=== PATIENT | male | born 1995 | race Two or more races ===

== ENCOUNTER 2020-09-12 15:03 | Inpatient (IN) | payer MEDICAID ==
[~2020-09-12] VITALS: Ht 180.3 cm; Wt 109.5 kg
[2020-09-12] MEDS ORDERED: SERT-162 PO (16:50)
[2020-09-12] MEDS ORDERED: BUPR-93 PO (16:50)
[2020-09-12] MEDS ORDERED: HALOPERIDOL 5 MG TABLET PO PRN (19:45)
[2020-09-12] MEDS ORDERED: INFLUENZA VIRUS VACCINE QVS 2020-21 (6MO+)/PF 60 MCG/0.5 ML SYRINGE IM ONE (19:45)
[2020-09-12] MEDS ORDERED: PNEUMOCOCCAL VACCINE POLYVALENT 0.5 ML VIAL [PPSV23] IM ONE (19:45)
[2020-09-12 20:00] VITALS: BP 131/71
[2020-09-12] MEDS: LORazepam 2 MG TABLET PO PRN (21:48)
[2020-09-12] MEDS ORDERED: ACETAMINOPHEN 325 MG TABLET PO PRN (22:15)
[2020-09-13] MEDS ORDERED: CloNIDine HCL 0.1 MG TABLET PO PRN (06:15)
[2020-09-13] MEDS ORDERED: MAG HYDROX/AL HYDROX/SIMETH ES 30 ML SUSPENSION UDCUP PO PRN (06:15)
[2020-09-13] MEDS ORDERED: ONDANSETRON HCL 4 MG TABLET PO PRN (06:15)
[2020-09-13] MEDS ORDERED: MAGNESIUM HYDROXIDE SUSPENSION 30 ML UDCUP PO PRN (06:15)
[2020-09-13] MEDS ORDERED: PETROLATUM,WHITE 28 GM JELLY TP PRN (06:15)
[2020-09-13] MEDS ORDERED: BACITRACIN 28 GM OINTMENT TP PRN (06:15)
[2020-09-13] MEDS ORDERED: DOCUSATE SODIUM 100 MG CAPSULE PO PRN (06:15)
[2020-09-13] MEDS ORDERED: ACETAMINOPHEN 325 MG TABLET PO PRN (06:15)
[2020-09-13] MEDS ORDERED: IBUPROFEN 600 MG TABLET PO PRN (06:15)
[2020-09-13] MEDS ORDERED: ALBUTEROL SULFATE HFA 90 MCG/PUFF 8 GM INHALER IH PRN (06:15)
[2020-09-13] MEDS ORDERED: OMEPRAZOLE 20 MG CAPSULE PO PRN (06:15)
[2020-09-13] MEDS ORDERED: LOPERAMIDE HCL 2 MG CAPSULE PO PRN (06:15)
[2020-09-13 06:39] VITALS: BP 120/69
[2020-09-13 08:33] LABS: BASOPHILS % (AUTO) 2.9 % (0.0-2.0); EOSINOPHILS % (AUTO) 2.8 % (1.0-6.0); HEMATOCRIT 44.8 % (41-53); HEMOGLOBIN 14.2 g/dL (13.5-17.5); LYMPHOCYTES # (AUTO) 1.7 K/uL (1.0-4.8); LYMPHOCYTES % (AUTO) 28.4 % (22.0-44.0); MEAN CORPUSCULAR HGB CONC 31.7 G/dL (31.0-37.0); MEAN CORPUSCULAR VOLUME 88 fL (80-100); MONOCYTES # (AUTO) 0.4 K/uL (0.1-1.0); MONOCYTES % (AUTO) 6.9 % (2.0-9.0); NEUTROPHILS # (AUTO) 3.6 K/uL (1.8-7.7); PLATELET COUNT (AUTO) 293 K/uL (150-450); RED BLOOD CELL COUNT(AUTO) 5.08 MIL/uL (4.50-5.90); RED CELL DISTRIBUTION WIDTH 13.2 % (11.5-14.5)
[2020-09-13 08:48] LABS: HEMOGLOBIN A1C 4.9 % (3.8-5.6)
[2020-09-13 08:55] LABS: ALANINE AMINOTRANSFERASE 35 U/L (12-78); ALBUMIN 3.9 g/dL (3.4-5.0); ALKALINE PHOSPHATASE 90 U/L (46-116); ANION GAP 7 mmol/L (8-16); ASPARTATE AMINOTRANSFERASE 27 U/L (15-37); BILIRUBIN,TOTAL 0.3 mg/dL (0.1-1.0); CARBON DIOXIDE 32 mmol/L (22-29); CHLORIDE 102 mmol/L (98-107); CHOL/HDL RATIO 5.1 (4.2-7.3); CHOLESTEROL 169 mg/dL (131-200); CREATININE 0.87 mg/dL (0.60-1.30); FREE T4 (FREE THYROXINE) 0.97 ng/dL (0.76-1.46); GLOMERULAR FILTR. RATE CALC > 60 mL/min (>60); GLUCOSE,RANDOM 90 mg/dL (70-110); HDL CHOLESTEROL 33 mg/dL (40-60); LDL CHOL (CALC.) 90 mg/dL (0-130); SODIUM SERUM 141 mmol/L (136-145); THYROID STIMULATING HORMONE 0.83 uIU/mL (0.36-3.74); TOTAL PROTEIN, SERUM 7.4 g/dL (6.4-8.2); TRIGLYCERIDES 229 mg/dL (15-150); UREA NITROGEN, BLOOD 11 mg/dL (7-18)
[2020-09-13 10:09] VITALS: BP 116/83
[2020-09-13] MEDS: SERTRALINE HCL 100 MG TABLET PO SCH (12:26)
[2020-09-13 16:35] VITALS: BP 115/64
[2020-09-13] MEDS: LORazepam 2 MG TABLET PO PRN (17:10)
[2020-09-13] MEDS: ZOLPIDEM TARTRATE 10 MG TABLET PO PRN (20:41)
[2020-09-14 06:16] VITALS: BP 134/76
[2020-09-14] MEDS: LORazepam 2 MG TABLET PO PRN (08:02)
[2020-09-14] MEDS: SERTRALINE HCL 100 MG TABLET PO SCH (08:02)
[2020-09-14 08:56] VITALS: BP 129/83
[2020-09-14 17:58] VITALS: BP 133/79
[2020-09-15] MEDS: ZOLPIDEM TARTRATE 10 MG TABLET PO PRN (00:05)
[2020-09-15 00:39] VITALS: BP 125/75
[2020-09-15] MEDS: LORazepam 2 MG TABLET PO PRN (07:22)
[2020-09-15 08:36] VITALS: BP 123/79
[2020-09-15] MEDS: SERTRALINE HCL 100 MG TABLET PO SCH (08:38)
== END 2020-09-15 15:00 | disposition home or self-care (01) | DRG 754 ==
LOC: B2S 19:42
PROVIDERS: ADMIT Psychiatry & Neurology Psychiatry; ATTEND Psychiatry & Neurology Psychiatry
PROC: 3E02340 Introduction of Influenza Vaccine into Muscle, Percutaneous Approach (ICD-10-PCS; principal; 2020-09-12)
PROC: 3E0234Z Introduction of Serum, Toxoid and Vaccine into Muscle, Percutaneous Approach (ICD-10-PCS; 2020-09-12)
DX: F32.9 Major depressive disorder, single episode, unspecified (principal); E66.9 Obesity, unspecified; E78.5 Hyperlipidemia, unspecified; F22 Delusional disorders; F41.9 Anxiety disorder, unspecified; G47.00 Insomnia, unspecified; Z68.33 Body mass index [BMI] 33.0-33.9, adult; Z23 Encounter for immunization
CPT/HCPCS: 83036; 84439; 84443; 87081; 90686; 90732

== ENCOUNTER 2021-04-16 22:48 | Inpatient (IN) | payer MEDICAID ==
[~2021-04-16] VITALS: Ht 180.3 cm; Wt 115.3 kg
[~2021-04-16 22:48] MED LIST: SERT-162 PO
[2021-04-16] MEDS ORDERED: HALOPERIDOL 5 MG TABLET PO PRN (23:30)
[2021-04-16 23:47] LABS: GLUCOMETER DEV NAME(LOC) POC.BV
[2021-04-17] MEDS ORDERED: -PHARMACY VACCINE NOTE- MISC ONE (00:45)
[2021-04-17] MEDS ORDERED: INFLUENZA VIRUS VACCINE QVS 2021-22 (6MO+)/PF 60 MCG/0.5 ML SYRINGE IM. ONE (00:45)
[2021-04-17 01:12] VITALS: BP 132/79
[2021-04-17] MEDS: ZOLPIDEM TARTRATE 10 MG TABLET PO PRN (01:17)
[2021-04-17] MEDS: LORazepam 2 MG TABLET PO PRN (02:36)
[2021-04-17 07:45] LABS: BASOPHILS % (AUTO) 0.4 % (0.0-2.0); EOSINOPHILS % (AUTO) 1.2 % (1.0-6.0); HEMATOCRIT 40.7 % (41-53); HEMOGLOBIN 13.7 g/dL (13.5-17.5); LYMPHOCYTES # (AUTO) 2.1 K/uL (1.0-4.8); MEAN CORPUSCULAR HEMOGLOBIN 27.3 pg (26.0-34.0); MEAN CORPUSCULAR HGB CONC 33.6 G/dL (31.0-37.0); MEAN CORPUSCULAR VOLUME 81 fL (80-100); MONOCYTES # (AUTO) 0.5 K/uL (0.1-1.0); MONOCYTES % (AUTO) 7.8 % (2.0-9.0); NEUTROPHILS # (AUTO) 4.2 K/uL (1.8-7.7); NEUTROPHILS % (AUTO) 60.6 % (40.0-70.0); PLATELET COUNT (AUTO) 306 K/uL (150-450); RED BLOOD CELL COUNT(AUTO) 5.02 MIL/uL (4.50-5.90); RED CELL DISTRIBUTION WIDTH 13.5 % (11.5-14.5)
[2021-04-17 08:10] LABS: HEMOGLOBIN A1C 5.6 % (3.8-5.6)
[2021-04-17 08:24] LABS: ALANINE AMINOTRANSFERASE 95 U/L (12-78); ALKALINE PHOSPHATASE 96 U/L (46-116); ANION GAP 10 mmol/L (8-16); ASPARTATE AMINOTRANSFERASE 50 U/L (15-37); BILIRUBIN,TOTAL 0.5 mg/dL (0.1-1.0); CALCIUM, TOTAL 8.8 mg/dL (8.8-10.5); CARBON DIOXIDE 28 mmol/L (22-29); CHLORIDE 102 mmol/L (98-107); CHOL/HDL RATIO 5.1 (4.2-7.3); CHOLESTEROL 184 mg/dL (131-200); CREATININE 0.89 mg/dL (0.60-1.30); FREE T4 (FREE THYROXINE) 1.06 ng/dL (0.76-1.46); GLOMERULAR FILTR. RATE CALC > 60 mL/min (>60); GLUCOSE,RANDOM 89 mg/dL (70-110); HDL CHOLESTEROL 36 mg/dL (40-60); LDL CHOL (CALC.) 127 mg/dL (0-130); POTASSIUM 3.8 mmol/L (3.5-5.1); SODIUM SERUM 140 mmol/L (136-145); THYROID STIMULATING HORMONE 1.86 uIU/mL (0.36-3.74); TOTAL PROTEIN, SERUM 7.4 g/dL (6.4-8.2); TRIGLYCERIDES 105 mg/dL (15-150); UREA NITROGEN, BLOOD 13 mg/dL (7-18)
[2021-04-17 09:26] VITALS: BP 130/90
[2021-04-17] MEDS ORDERED: CloNIDine HCL 0.1 MG TABLET PO PRN (10:00)
[2021-04-17] MEDS ORDERED: GuaiFENesin/D-METHORPHAN [SUGAR-FREE] 200-20MG/10 ML SYRUP UDCUP PO PRN (10:00)
[2021-04-17] MEDS ORDERED: MAGNESIUM HYDROXIDE SUSPENSION 30 ML UDCUP PO PRN (10:00)
[2021-04-17] MEDS ORDERED: MAG HYDROX/AL HYDROX/SIMETH ES 30 ML SUSPENSION UDCUP PO PRN (10:00)
[2021-04-17] MEDS ORDERED: IBUPROFEN 400 MG TABLET PO PRN (10:00)
[2021-04-17] MEDS ORDERED: PETROLATUM,WHITE 28 GM JELLY TP PRN (10:00)
[2021-04-17] MEDS ORDERED: NICOTINE 14 MG/24 HOUR PATCH TD PRN (10:00)
[2021-04-17] MEDS ORDERED: LOPERAMIDE HCL 2 MG CAPSULE PO PRN (10:00)
[2021-04-17] MEDS ORDERED: ALBUTEROL SULFATE HFA 90 MCG/PUFF 8 GM INHALER IH PRN (10:00)
[2021-04-17] MEDS ORDERED: ONDANSETRON HCL 4 MG TABLET PO PRN (10:00)
[2021-04-17] MEDS ORDERED: DOCUSATE SODIUM 100 MG CAPSULE PO PRN (10:00)
[2021-04-17] MEDS ORDERED: ACETAMINOPHEN 325 MG TABLET PO PRN (10:00)
[2021-04-17] MEDS: BusPIRone HCL 15 MG TABLET PO SCH (12:38)
[2021-04-17] MEDS: SERTRALINE HCL 100 MG TABLET PO SCH (12:39)
[2021-04-17 16:31] VITALS: BP 127/82
[2021-04-17] MEDS: LITHIUM CARBONATE 600 MG CAPSULE PO SCH (21:42)
[2021-04-18] MEDS: ZOLPIDEM TARTRATE 10 MG TABLET PO PRN ×2 (00:30→22:01)
[2021-04-18] MEDS: LORazepam 2 MG TABLET PO PRN ×2 (01:45→13:09)
[2021-04-18 06:09] VITALS: BP 130/76
[2021-04-18] MEDS: SERTRALINE HCL 100 MG TABLET PO SCH (08:07)
[2021-04-18 08:58] VITALS: BP 128/85
[2021-04-18] MEDS: BusPIRone HCL 15 MG TABLET PO SCH (09:16)
[2021-04-18] MEDS: NICOTINE POLACRILEX 2 MG LOZENGE PO PRN ×2 (13:28→20:45)
[2021-04-18 16:27] VITALS: BP 138/88
[2021-04-18] MEDS: LITHIUM CARBONATE 600 MG CAPSULE PO SCH (22:01)
[2021-04-19 03:56] VITALS: BP 132/81
[2021-04-19] MEDS: BusPIRone HCL 15 MG TABLET PO SCH (08:11)
[2021-04-19] MEDS: SERTRALINE HCL 100 MG TABLET PO SCH (08:12)
[2021-04-19] MEDS: NICOTINE POLACRILEX 2 MG LOZENGE PO PRN ×3 (08:12→21:53)
[2021-04-19 09:11] VITALS: BP 123/83
[2021-04-19 16:34] VITALS: BP 130/89
[2021-04-19] MEDS: LITHIUM CARBONATE 600 MG CAPSULE PO SCH (21:54)
[2021-04-19] MEDS: ZOLPIDEM TARTRATE 10 MG TABLET PO PRN (22:04)
[2021-04-20 03:26] VITALS: BP 128/86
[2021-04-20] MEDS: NICOTINE POLACRILEX 2 MG LOZENGE PO PRN ×2 (08:10→18:19)
[2021-04-20 08:37] VITALS: BP 120/79
[2021-04-20] MEDS: SERTRALINE HCL 100 MG TABLET PO SCH (08:38)
[2021-04-20] MEDS: BusPIRone HCL 15 MG TABLET PO SCH (08:38)
[2021-04-20] MEDS: LITHIUM CARBONATE 300 MG CAPSULE PO SCH (13:00)
[2021-04-20 16:23] VITALS: BP 129/80
[2021-04-20] MEDS: LITHIUM CARBONATE 600 MG CAPSULE PO SCH (20:35)
[2021-04-20] MEDS: LORazepam 2 MG TABLET PO PRN (21:03)
[2021-04-21] MEDS: ZOLPIDEM TARTRATE 10 MG TABLET PO PRN ×2 (00:29→22:04)
[2021-04-21] MEDS: NICOTINE POLACRILEX 2 MG LOZENGE PO PRN ×2 (00:29→18:05)
[2021-04-21 03:16] VITALS: BP 130/88
[2021-04-21 07:32] LABS: COVID AG,FIA SOURCE NASOPHARYNGEAL
[2021-04-21 08:22] VITALS: BP 114/73
[2021-04-21] MEDS: BusPIRone HCL 15 MG TABLET PO SCH (08:59)
[2021-04-21] MEDS: LITHIUM CARBONATE 300 MG CAPSULE PO SCH (09:00)
[2021-04-21] MEDS: SERTRALINE HCL 100 MG TABLET PO SCH (09:00)
[2021-04-21 16:10] VITALS: BP 124/74
[2021-04-21] MEDS: LITHIUM CARBONATE 600 MG CAPSULE PO SCH (22:01)
[2021-04-22 00:51] VITALS: BP 126/76
[2021-04-22] MEDS: NICOTINE POLACRILEX 2 MG LOZENGE PO PRN ×4 (03:32→23:05)
[2021-04-22] MEDS: LITHIUM CARBONATE 300 MG CAPSULE PO SCH ×2 (08:03→22:08)
[2021-04-22] MEDS: BusPIRone HCL 15 MG TABLET PO SCH (08:03)
[2021-04-22] MEDS: SERTRALINE HCL 100 MG TABLET PO SCH (08:03)
[2021-04-22 08:34] VITALS: BP 130/83
[2021-04-22 16:08] VITALS: BP 127/84
[2021-04-22] MEDS: ZOLPIDEM TARTRATE 10 MG TABLET PO PRN (22:09)
[2021-04-22] MEDS: LITHIUM CARBONATE 600 MG CAPSULE PO SCH (22:13)
[2021-04-23 01:45] VITALS: BP 140/82
[2021-04-23 08:14] VITALS: BP 137/80
[2021-04-23] MEDS: LITHIUM CARBONATE 300 MG CAPSULE PO SCH (09:37)
[2021-04-23] MEDS: BusPIRone HCL 15 MG TABLET PO SCH (09:37)
[2021-04-23] MEDS: SERTRALINE HCL 100 MG TABLET PO SCH (09:37)
[2021-04-23] MEDS: NICOTINE POLACRILEX 2 MG LOZENGE PO PRN ×2 (12:28→18:40)
[2021-04-23 16:07] VITALS: BP 123/76
[2021-04-23] MEDS: ZOLPIDEM TARTRATE 10 MG TABLET PO PRN (21:34)
[2021-04-23] MEDS: LITHIUM CARBONATE 600 MG CAPSULE PO SCH (21:34)
[2021-04-24 00:44] VITALS: BP 124/74
[2021-04-24 08:54] VITALS: BP 111/66
[2021-04-24] MEDS: NICOTINE POLACRILEX 2 MG LOZENGE PO PRN ×4 (09:10→23:52)
[2021-04-24] MEDS: SERTRALINE HCL 100 MG TABLET PO SCH (09:19)
[2021-04-24] MEDS: BusPIRone HCL 15 MG TABLET PO SCH (09:19)
[2021-04-24] MEDS: LITHIUM CARBONATE 300 MG CAPSULE PO SCH (09:19)
[2021-04-24 16:17] VITALS: BP 131/82
[2021-04-24] MEDS: LITHIUM CARBONATE 600 MG CAPSULE PO SCH ×2 (21:19→22:36)
[2021-04-24] MEDS: ZOLPIDEM TARTRATE 10 MG TABLET PO PRN (22:36)
[2021-04-25 00:51] VITALS: BP 134/83
[2021-04-25 08:25] VITALS: BP 133/83
[2021-04-25] MEDS: BusPIRone HCL 15 MG TABLET PO SCH (09:05)
[2021-04-25] MEDS: LITHIUM CARBONATE 300 MG CAPSULE PO SCH (09:05)
[2021-04-25] MEDS: SERTRALINE HCL 100 MG TABLET PO SCH (09:05)
[2021-04-25] MEDS: NICOTINE POLACRILEX 2 MG LOZENGE PO PRN ×2 (11:16→17:35)
[2021-04-25 16:12] VITALS: BP 134/82
[2021-04-25] MEDS: LITHIUM CARBONATE 600 MG CAPSULE PO SCH (21:47)
[2021-04-25] MEDS: ZOLPIDEM TARTRATE 10 MG TABLET PO PRN (21:50)
[2021-04-25] MEDS: LORazepam 2 MG TABLET PO PRN (22:21)
[2021-04-26 00:56] VITALS: BP 137/80
[2021-04-26] MEDS: NICOTINE POLACRILEX 2 MG LOZENGE PO PRN ×3 (05:11→20:26)
[2021-04-26 08:31] VITALS: BP 133/87
[2021-04-26] MEDS: LITHIUM CARBONATE 300 MG CAPSULE PO SCH (09:04)
[2021-04-26] MEDS: BusPIRone HCL 15 MG TABLET PO SCH (09:05)
[2021-04-26] MEDS: SERTRALINE HCL 100 MG TABLET PO SCH (09:05)
[2021-04-26 16:25] VITALS: BP 129/77
[2021-04-26] MEDS: LITHIUM CARBONATE 600 MG CAPSULE PO SCH (22:06)
[2021-04-26] MEDS: ZOLPIDEM TARTRATE 10 MG TABLET PO PRN (22:06)
[2021-04-27 00:35] VITALS: BP 122/79
[2021-04-27] MEDS: NICOTINE POLACRILEX 2 MG LOZENGE PO PRN ×2 (03:02→18:24)
[2021-04-27 08:32] VITALS: BP 127/84
[2021-04-27] MEDS: SERTRALINE HCL 100 MG TABLET PO SCH (09:15)
[2021-04-27] MEDS: BusPIRone HCL 15 MG TABLET PO SCH (09:15)
[2021-04-27] MEDS: LITHIUM CARBONATE 300 MG CAPSULE PO SCH (09:15)
[2021-04-27 16:27] VITALS: BP 128/86
[2021-04-27] MEDS: LITHIUM CARBONATE 600 MG CAPSULE PO SCH (21:08)
[2021-04-27] MEDS: ZOLPIDEM TARTRATE 10 MG TABLET PO PRN (22:07)
[2021-04-28 06:16] VITALS: BP 136/81
[2021-04-28 06:30] LABS: COVID AG,FIA SOURCE NASOPHARYNGEAL
[2021-04-28] MEDS: SERTRALINE HCL 100 MG TABLET PO SCH (08:11)
[2021-04-28] MEDS: BusPIRone HCL 15 MG TABLET PO SCH (08:11)
[2021-04-28] MEDS: NICOTINE POLACRILEX 2 MG LOZENGE PO PRN ×2 (08:11→18:11)
[2021-04-28] MEDS: LITHIUM CARBONATE 300 MG CAPSULE PO SCH (08:11)
[2021-04-28 08:39] VITALS: BP 140/83
[2021-04-28] MEDS: LORazepam 2 MG TABLET PO PRN ×2 (13:48→18:11)
[2021-04-28 16:15] VITALS: BP 121/81
[2021-04-28] MEDS: ZOLPIDEM TARTRATE 10 MG TABLET PO PRN (21:58)
[2021-04-28] MEDS: LITHIUM CARBONATE 600 MG CAPSULE PO SCH (21:58)
[2021-04-29 01:04] VITALS: BP 127/84
[2021-04-29 08:35] VITALS: BP 143/85
[2021-04-29] MEDS: SERTRALINE HCL 100 MG TABLET PO SCH (09:58)
[2021-04-29] MEDS: BusPIRone HCL 15 MG TABLET PO SCH (09:58)
[2021-04-29] MEDS: LITHIUM CARBONATE 300 MG CAPSULE PO SCH (09:58)
[2021-04-29] MEDS: NICOTINE POLACRILEX 2 MG LOZENGE PO PRN ×2 (10:01→16:29)
[2021-04-29 16:28] VITALS: BP 126/74
[2021-04-29] MEDS: LITHIUM CARBONATE 600 MG CAPSULE PO SCH (22:15)
[2021-04-29] MEDS: ZOLPIDEM TARTRATE 10 MG TABLET PO PRN (22:18)
[2021-04-30 00:22] VITALS: BP 116/64
[2021-04-30] MEDS: NICOTINE POLACRILEX 2 MG LOZENGE PO PRN ×2 (01:28→15:09)
[2021-04-30 08:26] VITALS: BP 128/86
[2021-04-30] MEDS: LITHIUM CARBONATE 300 MG CAPSULE PO SCH (09:30)
[2021-04-30] MEDS: SERTRALINE HCL 100 MG TABLET PO SCH (09:31)
[2021-04-30] MEDS: BusPIRone HCL 15 MG TABLET PO SCH (09:36)
[2021-04-30 16:14] VITALS: BP 141/80
[2021-04-30] MEDS: LITHIUM CARBONATE 600 MG CAPSULE PO SCH (21:55)
[2021-04-30] MEDS: ZOLPIDEM TARTRATE 10 MG TABLET PO PRN (21:55)
[2021-05-01] MEDS: NICOTINE POLACRILEX 2 MG LOZENGE PO PRN ×3 (00:56→21:27)
[2021-05-01 03:27] VITALS: BP 134/88
[2021-05-01 08:18] VITALS: BP 133/75
[2021-05-01] MEDS: SERTRALINE HCL 100 MG TABLET PO SCH (08:23)
[2021-05-01] MEDS: BusPIRone HCL 15 MG TABLET PO SCH (08:23)
[2021-05-01] MEDS: LITHIUM CARBONATE 300 MG CAPSULE PO SCH (08:23)
[2021-05-01 16:23] VITALS: BP 134/82
[2021-05-01] MEDS: LITHIUM CARBONATE 600 MG CAPSULE PO SCH (22:00)
[2021-05-01] MEDS: ZOLPIDEM TARTRATE 10 MG TABLET PO PRN (22:00)
[2021-05-02 00:59] VITALS: BP 129/78
[2021-05-02 08:15] VITALS: BP 130/80
[2021-05-02] MEDS: BusPIRone HCL 15 MG TABLET PO SCH (08:49)
[2021-05-02] MEDS: LITHIUM CARBONATE 300 MG CAPSULE PO SCH (08:49)
[2021-05-02] MEDS: SERTRALINE HCL 100 MG TABLET PO SCH (08:49)
[2021-05-02] MEDS: MULTIVITAMINS WITH MINERALS, THERAPEUTIC TABLET PO SCH (08:49)
[2021-05-02 16:14] VITALS: BP 120/80
[2021-05-02] MEDS: NICOTINE POLACRILEX 2 MG LOZENGE PO PRN (16:25)
[2021-05-02] MEDS: LITHIUM CARBONATE 600 MG CAPSULE PO SCH (22:00)
[2021-05-02] MEDS: ZOLPIDEM TARTRATE 10 MG TABLET PO PRN (22:00)
[2021-05-03 02:05] VITALS: BP 140/86
[2021-05-03] MEDS: BusPIRone HCL 15 MG TABLET PO SCH (08:16)
[2021-05-03] MEDS: SERTRALINE HCL 100 MG TABLET PO SCH (08:16)
[2021-05-03] MEDS: MULTIVITAMINS WITH MINERALS, THERAPEUTIC TABLET PO SCH (08:16)
[2021-05-03] MEDS: LITHIUM CARBONATE 300 MG CAPSULE PO SCH (08:16)
[2021-05-03 08:36] VITALS: BP 123/78
[2021-05-03] MEDS: NICOTINE POLACRILEX 2 MG LOZENGE PO PRN ×2 (15:15→21:51)
[2021-05-03 16:37] VITALS: BP 121/73
[2021-05-03] MEDS: LITHIUM CARBONATE 600 MG CAPSULE PO SCH (21:51)
[2021-05-03] MEDS: ZOLPIDEM TARTRATE 10 MG TABLET PO PRN (21:51)
[2021-05-04 00:52] VITALS: BP 130/86
[2021-05-04 08:12] VITALS: BP 128/87
[2021-05-04] MEDS: LITHIUM CARBONATE 300 MG CAPSULE PO SCH (08:19)
[2021-05-04] MEDS: SERTRALINE HCL 100 MG TABLET PO SCH (08:19)
[2021-05-04] MEDS: BusPIRone HCL 15 MG TABLET PO SCH (08:19)
[2021-05-04] MEDS: MULTIVITAMINS WITH MINERALS, THERAPEUTIC TABLET PO SCH (08:19)
[2021-05-04] MEDS: NICOTINE POLACRILEX 2 MG LOZENGE PO PRN (14:19)
[2021-05-04 16:27] VITALS: BP 126/86
[2021-05-04] MEDS: ZOLPIDEM TARTRATE 10 MG TABLET PO PRN (21:46)
[2021-05-04] MEDS: LITHIUM CARBONATE 600 MG CAPSULE PO SCH (21:46)
[2021-05-05 00:05] VITALS: BP 131/78
[2021-05-05 07:08] LABS: COVID AG,FIA SOURCE NASOPHARYNGEAL
[2021-05-05] MEDS: MULTIVITAMINS WITH MINERALS, THERAPEUTIC TABLET PO SCH (08:20)
[2021-05-05] MEDS: LITHIUM CARBONATE 300 MG CAPSULE PO SCH (08:20)
[2021-05-05] MEDS: SERTRALINE HCL 100 MG TABLET PO SCH (08:20)
[2021-05-05] MEDS: BusPIRone HCL 15 MG TABLET PO SCH (08:21)
[2021-05-05 09:47] VITALS: BP 128/89
[2021-05-05 16:20] VITALS: BP 125/73
[2021-05-05] MEDS: NICOTINE POLACRILEX 2 MG LOZENGE PO PRN (16:42)
[2021-05-05] MEDS: LITHIUM CARBONATE 600 MG CAPSULE PO SCH (21:48)
[2021-05-05] MEDS: ZOLPIDEM TARTRATE 10 MG TABLET PO PRN (22:00)
[2021-05-06 00:02] VITALS: BP 122/75
[2021-05-06] MEDS: LORazepam 1 MG TABLET PO PRN (06:45)
[2021-05-06] MEDS: NICOTINE POLACRILEX 2 MG LOZENGE PO PRN ×3 (08:35→22:07)
[2021-05-06 08:53] VITALS: BP 118/73
[2021-05-06] MEDS: LITHIUM CARBONATE 300 MG CAPSULE PO SCH (09:11)
[2021-05-06] MEDS: BusPIRone HCL 15 MG TABLET PO SCH (09:11)
[2021-05-06] MEDS: MULTIVITAMINS WITH MINERALS, THERAPEUTIC TABLET PO SCH (09:11)
[2021-05-06] MEDS: SERTRALINE HCL 100 MG TABLET PO SCH (09:11)
[2021-05-06 16:20] VITALS: BP 135/86
[2021-05-06] MEDS: LITHIUM CARBONATE 600 MG CAPSULE PO SCH (21:09)
[2021-05-06] MEDS: ZOLPIDEM TARTRATE 10 MG TABLET PO PRN (22:07)
[2021-05-07 00:22] VITALS: BP 122/80
[2021-05-07 08:40] VITALS: BP 110/77
[2021-05-07] MEDS: MULTIVITAMINS WITH MINERALS, THERAPEUTIC TABLET PO SCH (09:00)
[2021-05-07] MEDS: SERTRALINE HCL 100 MG TABLET PO SCH (09:00)
[2021-05-07] MEDS: LITHIUM CARBONATE 300 MG CAPSULE PO SCH (09:00)
[2021-05-07] MEDS: BusPIRone HCL 15 MG TABLET PO SCH (09:00)
[2021-05-07] MEDS: NICOTINE POLACRILEX 2 MG LOZENGE PO PRN ×2 (13:29→22:11)
[2021-05-07 16:28] VITALS: BP 127/77
[2021-05-07] MEDS: LITHIUM CARBONATE 600 MG CAPSULE PO SCH (22:04)
[2021-05-07] MEDS: ZOLPIDEM TARTRATE 10 MG TABLET PO PRN (22:04)
[2021-05-08 01:07] VITALS: BP 121/76
[2021-05-08 08:29] VITALS: BP 130/81
[2021-05-08] MEDS: LITHIUM CARBONATE 300 MG CAPSULE PO SCH (08:59)
[2021-05-08] MEDS: MULTIVITAMINS WITH MINERALS, THERAPEUTIC TABLET PO SCH (08:59)
[2021-05-08] MEDS: BusPIRone HCL 15 MG TABLET PO SCH (08:59)
[2021-05-08] MEDS: SERTRALINE HCL 100 MG TABLET PO SCH (08:59)
[2021-05-08] MEDS: NICOTINE POLACRILEX 2 MG LOZENGE PO PRN (13:50)
[2021-05-08 16:41] VITALS: BP 131/70
[2021-05-08] MEDS: ZOLPIDEM TARTRATE 10 MG TABLET PO PRN (22:41)
[2021-05-08] MEDS: LITHIUM CARBONATE 600 MG CAPSULE PO SCH (22:41)
[2021-05-09 08:31] VITALS: BP 128/76
[2021-05-09] MEDS: LITHIUM CARBONATE 300 MG CAPSULE PO SCH (09:32)
[2021-05-09] MEDS: MULTIVITAMINS WITH MINERALS, THERAPEUTIC TABLET PO SCH (09:32)
[2021-05-09] MEDS: SERTRALINE HCL 100 MG TABLET PO SCH (09:32)
[2021-05-09] MEDS: BusPIRone HCL 15 MG TABLET PO SCH (09:33)
[2021-05-09] MEDS: LORazepam 1 MG TABLET PO PRN (09:40)
[2021-05-09] MEDS ORDERED: LITH600C5 PO (15:54)
[2021-05-09] MEDS ORDERED: LITH300C3 PO (15:54)
[2021-05-09] MEDS ORDERED: BUSP15 PO (15:55)
[2021-05-09] MEDS ORDERED: SERT-162 PO (15:56)
[2021-05-09 16:34] VITALS: BP 139/85
== END 2021-05-09 19:28 | disposition home or self-care (01) | DRG 751 ==
LOC: B2S 23:25
PROVIDERS: ADMIT Psychiatry & Neurology Child & Adolescent Psychiatry; ATTEND Psychiatry & Neurology Child & Adolescent Psychiatry
DX: F33.2 Major depressive disorder, recurrent severe without psychotic features (principal); R45.851 Suicidal ideations; Z91.19 Patient's noncompliance with other medical treatment and regimen; F41.9 Anxiety disorder, unspecified; I10 Essential (primary) hypertension; D64.9 Anemia, unspecified; Z20.822 Contact with and (suspected) exposure to COVID-19; J45.909 Unspecified asthma, uncomplicated; Z63.8 Other specified problems related to primary support group; Z59.00 Homelessness unspecified; Z88.8 Allergy status to other drugs, medicaments and biological substances; Z91.010 Allergy to peanuts; Z79.899 Other long term (current) drug therapy
CPT/HCPCS: 80053; 80061; 80178; 83036; 84439; 84443; 85025; 90686; Q9967

== ENCOUNTER 2021-05-09 22:16 | Inpatient (IN) | payer MEDICAID, OTHER ==
[~2021-05-09] VITALS: Ht 182.9 cm; Wt 113.4 kg
[~2021-05-09 22:16] MED LIST changes: +BUSP15 PO; +LITH300C3 PO; +LITH600C5 PO
[2021-05-09 23:01] LABS: COVID AG,FIA SOURCE NASOPHARYNGEAL
[2021-05-09 23:02] LABS: BASOPHILS % (AUTO) 0.6 % (0.0-2.0); EOSINOPHILS % (AUTO) 2.3 % (1.0-6.0); HEMATOCRIT 43.6 % (41-53); LYMPHOCYTES # (AUTO) 1.8 K/uL (1.0-4.8); LYMPHOCYTES % (AUTO) 19.5 % (22.0-44.0); MEAN CORPUSCULAR HEMOGLOBIN 28.1 pg (26.0-34.0); MEAN CORPUSCULAR HGB CONC 34.4 G/dL (31.0-37.0); MEAN CORPUSCULAR VOLUME 82 fL (80-100); MONOCYTES # (AUTO) 0.6 K/uL (0.1-1.0); MONOCYTES % (AUTO) 6.1 % (2.0-9.0); NEUTROPHILS # (AUTO) 6.6 K/uL (1.8-7.7); NEUTROPHILS % (AUTO) 71.5 % (40.0-70.0); PLATELET COUNT (AUTO) 394 K/uL (150-450); RED BLOOD CELL COUNT(AUTO) 5.34 MIL/uL (4.50-5.90); RED CELL DISTRIBUTION WIDTH 13.3 % (11.5-14.5)
[2021-05-09 23:05] LABS: AMPHET/METH SCREEN,URINE NEGATIVE (NEGATIVE); BARBITURATE SCREEN, URINE NEGATIVE (NEGATIVE); BENZODIAZEPINES SCREEN,URINE NEGATIVE (NEGATIVE); CANNABINOID SCREEN,URINE NEGATIVE (NEGATIVE); COCAINE SCREEN,URINE NEGATIVE (NEGATIVE); METHADONE SCREEN, URINE NEGATIVE (NEGATIVE); OPIATE SCREEN,URINE NEGATIVE (NEGATIVE)
[2021-05-09 23:06] LABS: PHENCYCLIDINE SCREEN,URINE NEGATIVE (NEGATIVE)
[2021-05-09 23:11] LABS: ANION GAP 8 mmol/L (8-16); CALCIUM, TOTAL 9.6 mg/dL (8.8-10.5); CARBON DIOXIDE 30 mmol/L (22-29); CHLORIDE 103 mmol/L (98-107); CREATININE 1.06 mg/dL (0.60-1.30); GLOMERULAR FILTR. RATE CALC > 60 mL/min (>60); GLUCOSE,RANDOM 102 mg/dL (70-110); POTASSIUM 4.1 mmol/L (3.5-5.1); SODIUM SERUM 141 mmol/L (136-145); UREA NITROGEN, BLOOD 18 mg/dL (7-18)
[2021-05-09 23:16] LABS: ALANINE AMINOTRANSFERASE 55 U/L (12-78); ALBUMIN 4.4 g/dL (3.4-5.0); ALKALINE PHOSPHATASE 105 U/L (46-116); ASPARTATE AMINOTRANSFERASE 31 U/L (15-37); BILIRUBIN,TOTAL 0.3 mg/dL (0.1-1.0); TOTAL PROTEIN, SERUM 8.4 g/dL (6.4-8.2)
[2021-05-10] MEDS ORDERED: NICOTINE 21 MG/24 HOUR PATCH TD ONE (00:15)
[2021-05-10] MEDS ORDERED: LORazepam 2 MG TABLET PO PRN (00:30)
[2021-05-10] MEDS ORDERED: HALOPERIDOL 5 MG TABLET PO PRN (00:30)
[2021-05-10 03:31] LABS: APPEARANCE,URINE TURBID (CLEAR); BILIRUBIN,URINE NEGATIVE (NEGATIVE); GLUCOSE, URINE (UA) NEGATIVE (NEGATIVE); KETONES,URINE NEGATIVE (NEGATIVE); LEUKOCYTE ESTERASE ,URINE NEGATIVE (NEGATIVE); NITRATE,URINE NEGATIVE (NEGATIVE); OCCULT BLOOD,URINE NEGATIVE (NEGATIVE); PH,URINE 5.5 (5.0-8.0); PROTEIN,URINE NEGATIVE (NEGATIVE); UROBILINOGEN,URINE 0.2 mg/dL (<=1.0)
[2021-05-10 03:43] LABS: AMORPHOUS SEDIMENT,UR Many /LPF (None Seen); BACTERIA,URINE Many /HPF (None Seen); RBC,URINE 0-2 /HPF (0-2); WBC,URINE 0-2 /HPF (0-5)
[2021-05-10] MEDS ORDERED: ACETAMINOPHEN 500 MG TABLET PO ONE (05:30)
[2021-05-10 14:49] VITALS: BP 156/98
[2021-05-10 16:08] VITALS: BP 128/85
[2021-05-10] MEDS ORDERED: ACETAMINOPHEN 325 MG TABLET PO PRN (19:00)
[2021-05-10] MEDS: ZOLPIDEM TARTRATE 10 MG TABLET PO PRN (22:17)
[2021-05-11 00:24] VITALS: BP 109/72
[2021-05-11] MEDS ORDERED: MAGNESIUM HYDROXIDE SUSPENSION 30 ML UDCUP PO PRN (07:00)
[2021-05-11] MEDS ORDERED: GuaiFENesin/D-METHORPHAN [SUGAR-FREE] 200-20MG/10 ML SYRUP UDCUP PO PRN (07:00)
[2021-05-11] MEDS ORDERED: DOCUSATE SODIUM 100 MG CAPSULE PO PRN (07:00)
[2021-05-11] MEDS ORDERED: IBUPROFEN 400 MG TABLET PO PRN (07:00)
[2021-05-11] MEDS ORDERED: MAG HYDROX/AL HYDROX/SIMETH ES 30 ML SUSPENSION UDCUP PO PRN (07:00)
[2021-05-11] MEDS ORDERED: CloNIDine HCL 0.1 MG TABLET PO PRN (07:00)
[2021-05-11] MEDS ORDERED: LOPERAMIDE HCL 2 MG CAPSULE PO PRN (07:00)
[2021-05-11] MEDS ORDERED: PETROLATUM,WHITE 28 GM JELLY TP PRN (07:00)
[2021-05-11] MEDS ORDERED: NICOTINE 14 MG/24 HOUR PATCH TD PRN (07:00)
[2021-05-11] MEDS ORDERED: ALBUTEROL SULFATE HFA 90 MCG/PUFF 8 GM INHALER IH PRN (07:00)
[2021-05-11] MEDS ORDERED: ONDANSETRON HCL 4 MG TABLET PO PRN (07:00)
[2021-05-11] MEDS ORDERED: ACETAMINOPHEN 325 MG TABLET PO PRN (07:00)
[2021-05-11 08:23] VITALS: BP 140/90
[2021-05-11 09:50] LABS: CHOL/HDL RATIO 5.6 (4.2-7.3)
[2021-05-11 16:26] VITALS: BP 138/82
[2021-05-11] MEDS ORDERED: PERMETHRIN 1% 60 ML LOTION TP ONE (18:15)
[2021-05-11] MEDS: LITHIUM CARBONATE 600 MG CAPSULE PO SCH (22:00)
[2021-05-11] MEDS: ZOLPIDEM TARTRATE 10 MG TABLET PO PRN (22:00)
[2021-05-12 00:36] VITALS: BP 130/84
[2021-05-12 07:26] LABS: COVID AG,FIA SOURCE NASOPHARYNGEAL
[2021-05-12 08:23] VITALS: BP 127/84
[2021-05-12] MEDS: SERTRALINE HCL 100 MG TABLET PO SCH (08:48)
[2021-05-12] MEDS: LITHIUM CARBONATE 300 MG CAPSULE PO SCH (08:49)
[2021-05-12] MEDS: BusPIRone HCL 15 MG TABLET PO SCH (08:49)
[2021-05-12 16:31] VITALS: BP 146/92
[2021-05-12] MEDS: LITHIUM CARBONATE 600 MG CAPSULE PO SCH (21:56)
[2021-05-12] MEDS: ZOLPIDEM TARTRATE 10 MG TABLET PO PRN (21:56)
[2021-05-13 01:09] VITALS: BP 131/80
[2021-05-13 08:18] VITALS: BP 131/74
[2021-05-13] MEDS: LITHIUM CARBONATE 300 MG CAPSULE PO SCH (09:06)
[2021-05-13] MEDS: BusPIRone HCL 15 MG TABLET PO SCH (09:07)
[2021-05-13] MEDS: SERTRALINE HCL 100 MG TABLET PO SCH (09:07)
== END 2021-05-13 13:10 | disposition home or self-care (01) | DRG 750 ==
LOC: EMS 22:19 → B2S 05-10 10:57
PROVIDERS: ADMIT Psychiatry & Neurology Child & Adolescent Psychiatry; ATTEND Psychiatry & Neurology Child & Adolescent Psychiatry
DX: F25.1 Schizoaffective disorder, depressive type (principal); R45.851 Suicidal ideations; Z59.00 Homelessness unspecified; F43.10 Post-traumatic stress disorder, unspecified; Z20.822 Contact with and (suspected) exposure to COVID-19; Z91.14 Patient's other noncompliance with medication regimen; Z88.8 Allergy status to other drugs, medicaments and biological substances
CPT/HCPCS: 80053; 80061; 81001; 85025; 87081; 87086; 99285; G0480

== ENCOUNTER 2021-07-17 12:35 | Emergency (ER) | payer MEDICAID, OTHER ==
[~2021-07-17] VITALS: Ht 177.8 cm; Wt 95.5 kg
[2021-07-17] MEDS ORDERED: ACETAMINOPHEN 325 MG TABLET PO ONE (13:45)
[2021-07-17] MEDS ORDERED: IBUPROFEN 600 MG TABLET PO ONE (13:45)
[2021-07-17 13:52] LABS: COVID AG,FIA SOURCE NASOPHARYNGEAL
[2021-07-17 14:33] LABS: INFLUENZA TYPE A NEGATIVE FOR TYPE A (NEGATIVE); INFLUENZA TYPE B NEGATIVE FOR TYPE B (NEGATIVE)
[2021-07-17] MEDS ORDERED: SODIUM CHLORIDE 0.9% 1,000 ML IV ONE (15:00)
[2021-07-17 15:01] VITALS: BP 142/85
== END 2021-07-17 16:45 | disposition home or self-care (01) ==
LOC: EMS 12:39
DX: R50.9 Fever, unspecified (principal); R06.02 Shortness of breath; J45.909 Unspecified asthma, uncomplicated; F41.9 Anxiety disorder, unspecified; F32.9 Major depressive disorder, single episode, unspecified; Z79.899 Other long term (current) drug therapy; Z88.8 Allergy status to other drugs, medicaments and biological substances; Z20.822 Contact with and (suspected) exposure to COVID-19
CPT/HCPCS: 71045; 87426; 87804; 96360; 99284; J7030